=== PATIENT | female | born 1980 | race Asian ===

== ENCOUNTER 2018-01-15 13:31 | Emergency (ER) | payer OTHER ==
[~2018-01-15] VITALS: Ht 157.5 cm; Wt 54.3 kg
[2018-01-15 13:35] VITALS: TEMP 36.7; Ht 157.5 cm; Wt 54.3 kg
[2018-01-15] MEDS ORDERED: CEFTRIAXONE SOD INJ 1 GM ADDVIAL IV STA (13:54)
[2018-01-15] MEDS ORDERED: LIDOCAINE 1% BUFFERED INJ 5 ML VIAL INFIL ONE (14:00)
[2018-01-15] MEDS ORDERED: CEPH500C2 PO (15:00)
[2018-01-15] MEDS ORDERED: SULF800T23 PO (15:00)
[2018-01-15] MEDS ORDERED: VNTHFA/IN INH (15:04)
[2018-01-15 15:10] VITALS: BP 111/75; PULSE 74; O2SAT 97
[2018-01-15] MEDS ORDERED: SALINE LOCK FLUSH IV SCH (18:00)
--- NOTE | 2018-01-16 13:49 | EMERGENCY ROOM VISIT NOTE ---
ED Visit Note First contact with patient: 13:39 CHIEF COMPLAINT: Wound infection. HISTORY OF PRESENT ILLNESS: Ms. Ascencio is a 37-year-old [place] female who ambulates into the ED accompanied by family members complaining of a finger abscess on the right middle finger. Historically patient reports she bites her nails and has had previous finger abscesses. Patient reports 2 days ago she was seen at a local urgent care center for redness and swelling of her right middle finger. She reports during her stay a puncture wound under the nail bed was performed but no drainage of the wound occurred. She was discharged home on doxycycline. Since being discharged she reports she has had 7 doses of doxycycline and has had no relief of her symptoms and actually feels like her infection is getting worse. She noticed a red, hard tender area in 4 days ago. She reports the area was getting increasingly larger and more painful. That is when she elected to be seen in urgent care. Since being started on her antibiotic once again she reports that the area is still slowly getting larger, more painful and tender. Currently she describes her pain as throbbing at rest and sharp with palpation. She rates her discomfort 2/10. Her pain is nonradiating. She also has pain with flexion and extension of the DIP joint. She has not taken any medications for pain. She denies any associated fevers, chills, sweats, other skin eruptions, other skin color changes, upper respiratory tract symptoms, cough, shortness of breath, chest pain, decreased appetite, abdominal pain, nausea, vomiting, finger numbness/tingling. REVIEW OF SYSTEMS: As noted above in history of present illness; 8 body systems are reviewed with the patient and found to be negative unless noted above otherwise. PAST MEDICAL HISTORY: Previous finger infection, asthma, bronchitis. CURRENT MEDICATION: Albuterol. ALLERGIES TO MEDICATION: Patient denies. SOCIAL HISTORY: Patient is currently employed; she feels safe in her home environment; she denies tobacco use and admits to social alcohol use. PHYSICAL EXAM: Vital Signs: Date Time Temp Pulse Resp B/P (MAP) Pulse Ox O2 Delivery O2 Flow Rate FiO2 01/15/18 15:10 74 16 111/75 97 01/15/18 13:35 36.7 91 18 135/89 96 Room Air General: 37 year-old female in mild distress due to pain, nontoxic appearing, afebrile and hemodynamically stable. Neurological: Awake, alert and oriented to person, place and time. Answering questions appropriately and following commands. Skin: Warm, dry and pink. Right Middle Finger: There is an red indurated area in the distal femoral necks starting just lateral to the lateral nail bed and extending to the pad and superiorly to just before the DIP joint line. Most of this area is fluctuant and there is pointing over the posterior aspect of the area of erythema. There is no draining or lymphangitis. It is fluctuant with/ out pointing, but no drainage. There is a zone of inflammation around it but no lymphangitis. Thorax: Lungs sounds are clear to auscultation and equal bilaterally with symmetrical chest wall movement. Abdomen: Flat, soft and nontender. Positive bowel sounds in all quadrants. ED COURSE: Patient is assessed as noted above. Patient's medication list was reviewed. Incision and Drainage: Verbal consent was obtained after the risks and benefits were explained. A digital block was performed using approximately 5 mL of buffered 1% lidocaine. The skin was prepped with betadine and a sterile field set. The abscess cavity was incised with a scalpel. Approximately 3 mL of purulent material was drained from the abscess and more was expressed. Aerobic cultures were obtained and are currently pending. The abscess cavity was sharply dissected with iris scissors to break up loculations and a small amount of additional purulent drainage was expressed. Copious irrigation was performed using sterile saline. Hemostasis was achieved. A sterile dressing and finger splint were applied. No complications and the patient tolerated the procedure well. Patient was educated about her condition and instructed on her treatment plan; she verbalized understanding and agreement with this plan. CLINICAL IMPRESSION: Abscess of the right middle finger.. DISPOSITION: Patient discharged to home in stable condition accompanied by family members; prior to departure she was reassessed and subjectively reported she was feeling the same.. PLAN: Patient was encouraged alternate ibuprofen and acetaminophen as needed for pain every 3 hours. Patient was prescribed Keflex 500 mg 4 times a day and Bactrim DS 2 times a day for 10 days. Patient was encouraged to keep her wounds dry and in a splint until follow-up care. Patient was encouraged to follow-up with her primary care provider return to the ED for recheck in 36-48 hours. Patient was encouraged return sooner for worsening/uncontrolled pain, increasing redness/swelling, red streaking, fevers or any new/concerning symptoms.
== END 2018-01-15 15:11 | disposition home or self-care (01) ==
LOC: C.EDB 13:33 → C.EDD 15:11
DX: L02.511 Cutaneous abscess of right hand (principal)